=== PATIENT | male | born 1990 | race Caucasian/White ===

== ENCOUNTER 2020-09-09 08:26 | Outpatient (CLI) | payer OTHER ==
[2020-09-09 09:32] VITALS: BP 154/99
--- NOTE | 2020-09-09 09:32 | SLEEP CARE CONSULTATION ---
Information from patient questionnaire entered by Altagracia Martin. I have reviewed and concur with the information entered by Altagracia Martin. This document represents the service I personally performed and the decisions made by me, Ina Preciado ARNP. History of Present Illness Service Date and Time: 09/09/2020825 Reason for Visit: New patient Chief Complaint: reports: Unrefreshed sleep, Snoring, Excessive daytime sleepiness, Observed pauses in breathing, Fatigue, Frequent awakenings at night Date of Onset: a year or so Usual bedtime: my sleep schedule changes weekly Time it takes to fall asleep: it depends on schedule Snores at night: Yes Observed to quit breathing while asleep: Yes Sleeps alone due to snoring: Yes Number of times waking at night: 2-3 Reasons for waking at night: reports: Choking (especially when on his back), Snoring, Gasping for air, Bathroom (due to new medications) Toss, Turn, or Twitch while sleeping: Yes Recalls having dreams: No Usually gets out of bed at: it depends on schedule Feels refreshed in the morning: No Morning headache: Yes (1 time a week, they last all morning to afternoon) Sleepy or fatigued during the day: Yes Ever fallen asleep while driving: No (some drowsy driving, no accidents) Takes day naps: Yes (3-4 days of week depends on schedule) Dreams during day naps: No Prior sleep studies: No Additional HPI information: I had the pleasure of seeing JUAN COLE today regarding the possibility of him having a sleep disorder. His current complaints are snoring, pauses in breathing, unrefreshed sleep and fatigue. He has an irregular work schedule that changes every week. He has been snoring for over a year after gaining 120 pounds. He is now on pre-diabetic meds and high blood pressure medication. He has started working out more as well as lifting weights. He is always tired. He snores so loud his girlfriend cannot sleep and has heard him choking in his sleep. He has a sore throat from snoring most mornings and wakes up with headaches about once a week. His father snores but does not have diagnosis for sleep disorder. - Parasomnia Symptoms Ever been unable to move upon waking from sleep: No Walks in sleep: No Talks in sleep: Yes Ever acted out dreams in sleep: No Ever felt weak in the knees when startled or emotional: No Bothered by creepy, crawly, restless sensations in legs: No Problems with memory or concentration: Yes (mostly concentration from being tired) Subjective Initial [place] Sleepiness Scale score: 11 (in 2020) Past Medical History Past Medical History: reports: Hypertension, Other (pre-diabetes) Social History The patient's occupation is a Active . Patient is Single and lives in [place]. Have you smoked in the past 12 months: No Alcohol use: No Caffeine use: Yes Caffeine amount and frequency: 1 coffee per day Family History Family history of sleep disordered breathing: No Family Hx Sleep Apnea: Father: Snoring Allergies and Home Medications Drug allergies reviewed: Yes (NKDA) Home medication list reviewed: Yes Allergy and home medication list: Metformin HCTZ (he thinks this sounds right) Review of Systems Weight gain over past 5 years: 120 Cardiovascular: reports: high blood pressure Respiratory: reports: shortness of breath Gastrointestinal: denies: heartburn Neurological: reports: headaches Psychiatric: denies: anxiety, depression Ear/Nose/Throat: reports: dry mouth/throat (in the morning), wisdom teeth remov ed. denies: tonsillectomy Endocrine: reports: sluggishness Physical Exam Blood Pressure: 154/99 (just started HTN meds 3-4 days ago) Cuff size: wrist Heart Rate: 109 O2 Saturation: 93 Height: 6 ft 4 in Weight: 375 lb Body Mass Index: 45.6 BMI Classification: Morbidly Obese Neck circumference: 18.75 (inches) Nostrils: patent to airflow Mouth and throat: narrow oropharynx Soft palate: long Hard palate: normal Uvula: normal Uvula visualization: 50% Mallampati Class II Tongue: enlarged in size with teeth mendes on lateral edges Tonsils: 1+ Chin and jaw: normal size and position Neck: normal w/o lymphadenopathy or thyromegaly Heart: regular rate and rhythm Impression and Plan 1. Suspected Obstructive Sleep Apnea-Hypopnea Syndrome, as suggested by a history of loud and irregular snoring, observed cessation of breath while asle ep, gasping or choking in sleep, morning headache, frequent awakening during the night, unrefreshed sleep, cognitive impairment, and excessive daytime sleepiness. Narrow oropharynx and obesity are common predisposing factors for obstructive sleep apnea-hypopnea syndrome. I recommend proceeding to polysomnography to confirm the diagnosis and to assess severity. If the patient has significant sleep disordered breathing, a manual CPAP titration study will also be performed to find the optimal treatment pressure. I informed the patient of what the sleep studies involve and after some discussion, obtained agreement to proceed. The pathophysiology of obstructive sleep apnea-hypopnea syndrome was discussed with the patient and health risks of cardiovascular and cerebrovascular disease if not treated. Risks of drowsy driving discussed in detail and patient advised to avoid long distance driving and to cable puller at the first sign of drowsiness. Patient agreed to plan. 2. Elevated blood pressure with diagnosis of hypertension. He has just started taking blood pressure medication about 3-4 days ago. His pressure was elevated at 154/99. He was asymptomatic today. He was advised to continue medications and follow up with PCP as needed. * Schedule polysomnography +- manual CPAP titration study and return in 1-2 weeks after the study to discuss result and initiate therapy. * Avoid long distance driving or driving when feeling sleepy. * Avoid alcohol, sedative and muscle relaxant around bedtime. * Attempt to lose weight. * Review instructions provided by trained office staff on how to prepare for the sleep study. * Return for follow-up after sleep study completed. Counseling Topics: Weight loss health impact Visit Type: In Office Time Spent with Patient (minutes): 30 Provider Statement: I spent 100% of the Face to Face Visit with the patient with greater than 50% spent counseling the patient and coordination of care.
== END 2020-09-09 08:27 | disposition home or self-care (01) ==
LOC: SC 08:26
PROVIDERS: ATTEND Nurse Practitioner Family
DX: R06.83 Snoring (principal); R06.81 Apnea, not elsewhere classified; G47.8 Other sleep disorders; R51.9 Headache, unspecified; G47.10 Hypersomnia, unspecified; R41.89 Other symptoms and signs involving cognitive functions and awareness; R53.83 Other fatigue; E66.01 Morbid (severe) obesity due to excess calories; Z68.42 Body mass index [BMI] 45.0-49.9, adult
CPT/HCPCS: 99203; 99212

== ENCOUNTER 2020-10-31 16:36 | Outpatient (CLI) | payer OTHER ==
--- NOTE | 2020-10-31 16:55 | SLEEP CARE CONSULTATION ---
Information from patient questionnaire entered by Nir Solorzano. I have reviewed and concur with the information entered by Nir Solorzano. This document represents the service I personally performed and the decisions made by me, Ina Preciado ARNP. History of Present Illness Service Date and Time: 10/31/2020 163 Initial [place] Sleepiness Scale score: 11 (in 2020) Current [place] Sleepiness Scale score: 9 Additional HPI information: JUAN COLE returns for follow up and results of the recently performed polysomnography. I explained the pathophysiology behind obstructive sleep apnea. We then spent quite a bit of time discussing different treatment options. For mild obstructive sleep apnea, surgery and oral appliance are alternatives to nasal CPAP therapy but in moderate or severe cases, nasal CPAP is the most effective and reliable treatment. Because apnea is primarily in supine position, then positional management therapy could be effective. Methods discussed such as positioning with pillows, using a T-shirt with tennis balls in the back, and shown commercial products that have a pillow format on back to prevent supine sleep. I reviewed the impact of weight changes on sleep apnea and strongly recommended losing weight. After some discussion, the patient opted to go with the nasal CPAP therapy. Nasal autoCPAP set at 4-15 cmH20 will be ordered with rationale explained. A manual titration study will be ordered if unable to find optimal pressure with office adjustments. I explained how CPAP machine works with sample devices Respironics Dreamstation and [employer]CompanyLoop [id number] and what to expect when using the machine. Using CPAP every night in order to get used to it was emphasized. Patient advised to put CPAP mask on before getting into bed so as not to fall asleep without CPAP. To assist acclimation to CPAP use, it could also be used for a short time during day while reading or watching TV. The patient was instructed to call the CPAP supplier to discuss any mechanical problem that may occur. If the mask given is uncomfortable or is difficult to keep on through the night even with adjustment, contact the CPAP supplier as many will replace with another mask style if notified before 30 days. If snoring or perceives is not getting enough air or too much air from the machine, notify this office. AAS patient education PAP tips reviewed and given to patient. Patient does not drink alcohol. Patient was cautioned about risks of drowsy driving until sleepiness symptoms resolve. Sleep Study - Results Type of Sleep Study: Polysomnography ([facility]) Prior sleep studies: No Polysomnography/Home Sleep Study results: This nocturnal polysomnographic sleep study showed moderate snoring which was intermittent in nature. The apnea/hypopnea index was 20.2 and the sleep efficiency was 77 .8%. The PLM index was 9.8. The sleep study is consistent with moderate obstructive sleep apnea with significant desaturation events down to 78%. Therefore, would recommend the patient return to the sleep lab for a full- night CPAP titration study. Alternative therapies, including dental appliances and surgical procedures could also be considered. Attaining optimal weight is recommended. , The EKG showed no significant arrhythmias. Allergies and Home Medications Home medication list reviewed: Yes (no new meds) Review of Systems Review of systems same as previous: Yes (no changes) Physical Exam Heart Rate: 99 O2 Saturation: 97 Height: 6 ft 4 in Weight: 364 lb Body Mass Index: 44.3 BMI Classification: Morbidly Obese Impression and Plan 1. Obstructive Sleep Apnea-Hypopnea Syndrome, moderate, with lowest oxygen saturation of 78%. Obviously this is the cause of the patients symptoms of unre freshed sleep, and excessive daytime sleepiness. Positive pressure therapy could benefit hypertension and pre-diabetes. As mentioned above, the patient will be started on nasal autoCPAP therapy with pressure set at 4-15 cmH2O. A manual titration study will be completed if unable to find optimal treatment pressure with office adjustments. Compliance guidelines also reviewed. A copy of compliance guidelines will be given for reference at check out. Because the apnea is more severe non-supine, I instructed to avoid sleeping non-supine using pillow positioning until able to start CPAP use. * Nasal auto CPAP therapy, pressure at 4-15 cm H2O. * Attempt to lose weight. * Avoid alcohol consumption near bedtime. * Avoid supine sleep until using CPAP. * The patient is again cautioned about driving until sleepiness completely resolves. * Return one month after CPAP obtained. I will assess response to therapy and compliance at that time. Counseling Topics: Weight loss health impact Visit Type: In Office Time Spent with Patient (minutes): 14 Provider Statement: I spent 100% of the Face to Face Visit with the patient with greater than 50% spent counseling the patient and coordination of care.
== END 2020-10-31 16:37 | disposition home or self-care (01) ==
LOC: SC 16:36
PROVIDERS: ATTEND Nurse Practitioner Family
DX: G47.33 Obstructive sleep apnea (adult) (pediatric) (principal); E66.01 Morbid (severe) obesity due to excess calories; Z68.41 Body mass index [BMI] 40.0-44.9, adult
CPT/HCPCS: 99212

== ENCOUNTER 2021-01-01 15:26 | Outpatient (CLI) | payer OTHER ==
--- NOTE | 2021-01-01 15:51 | SLEEP CARE CONSULTATION ---
Information from patient questionnaire entered by Altagracia Martin. I have reviewed and concur with the information entered by Altagracia Martin. This document represents the service I personally performed and the decisions made by , Ina Preciado ARNP. History of Present Illness Service Date and Time: 01/01/2021 1526 Previous diagnosis: Moderate, Obstructive Sleep Apnea-Hypopnea Syndrome AHI: 20.2 (in 2020) Reason for follow up: first compliance Equipment type: CPAP Equipment obtained from: Other ([facility]; got initial supplies) Mask style: Nasal Backup mask available: No (will keep old mask when replaced) Last cushion change: 1.5 weeks ago Prior sleep studies: Yes Year and Where: 2020 [facility] Sleep Type of Sleep Study: Polysomnography HPI additional information: JUAN COLE was diagnosed to have moderate, AHI 20.2, obstructive sleep apnea-hypopnea syndrome and returned today for CPAP therapy first compliance follow-up. CPAP Compliance Data - Data Reviewed with Patient Average duration of nightly device use: 5 hr 38 min Compliance rate %: 77 Current pressure setting (cmH2O): 4-15 (median 5.3, 95th 8.2, max 10.0) Humidity setting: auto Average residual AHI: 1.1 Subjective Missed days of use due to: reports: mask issues Patient concerns: reports: mask discomfort. denies: aerophagia, air blowing in eyes, mask leak noise, condensation in mask/hose, nasal congestion, dry mouth, nose, throat, epistaxis, other Observed to snore while using device: No Current pressure setting perceived as: too low On therapy, patient: reports: sleeping better, awakening more refreshed, being more awake and alert during the day, more rested overall. denies: drowsiness while driving Initial [place] Sleepiness Scale score: 11 (in 2020) Current [place] Sleepiness Scale score: 6 Allergies and Home Medications Home medication list reviewed: Yes (no changes) Review of Systems Review of systems same as previous: Yes (no changes) Physical Exam Heart Rate: 102 O2 Saturation: 98 Height: 6 ft 4 in Weight: 363 lb Body Mass Index: 44.1 BMI Classification: Morbidly Obese Impression and Plan 1. Obstructive Sleep Apnea-Hypopnea Syndrome, moderate, with good treatment compliance and good apnea control. On CPAP therapy, the patient has better sleep quality and is more rested overall. He feels as if the pressure might be a little bit too low with the onset. I will adjust his pressure to 8-10 cmH2O. Patient is to notify me if this pressure is uncomfortable. Goal for apnea control discussed. Patient has been trying to lose weight by watching his portions and making sure to exercise daily. He gained a few pounds from his mother visited with him because he was not exercising and she was cooking for him. He states he will get back on things now that she has gone back home. I encouraged him to continue to try to lose weight. Patient's apnea severity and rationale for treatment to reduce apnea, improve sleep quality and reduce cardiovascular and cerebrovascular events was reviewed. I also reviewed the benefit of consistent device use of CPAP for hypertension and pre-diabetes. * Change auto CPAP pressure to 8-10 cmH2O * Notify me if snoring with mask or feeling that the pressure is too much or too little * Attempt to lose weight * Call this office if any problems using CPAP * Return for follow up in 1-2 months, or sooner if concerns arise Counseling Topics: Spare mask, Weight loss health impact, Activity level Visit Type: In Office Time Spent with Patient (minutes): 20 Provider Statement: I spent 100% of the Face to Face Visit with the patient with greater than 50% spent counseling the patient and coordination of care.
== END 2021-01-01 15:27 | disposition home or self-care (01) ==
LOC: SC 15:26
PROVIDERS: ATTEND Nurse Practitioner Family
DX: G47.33 Obstructive sleep apnea (adult) (pediatric) (principal); E66.01 Morbid (severe) obesity due to excess calories; Z68.41 Body mass index [BMI] 40.0-44.9, adult
CPT/HCPCS: 99212; 99213

== ENCOUNTER 2021-02-03 15:37 | Outpatient (CLI) | payer OTHER ==
--- NOTE | 2021-02-03 16:14 | SLEEP CARE CONSULTATION ---
Information from patient questionnaire entered by Altagracia Martin. I have reviewed and concur with the information entered by Altagracia Martin. This document represents the service I personally performed and the decisions made by , Ina Preciado ARNP. History of Present Illness Service Date and Time: 02/03/2021 1537 Previous diagnosis: Moderate, Obstructive Sleep Apnea-Hypopnea Syndrome AHI: 20.2 (in 2020) Reason for follow up: one month (with pressure change) Equipment type: CPAP Equipment obtained from: Other ([facility]; no further supplies yet, will call them) Mask style: Nasal Backup mask available: No (will keep old mask when replaced) Last cushion change: this last week Prior sleep studies: Yes Year and Where: 2020 [facility] Sleep Type of Sleep Study: Polysomnography HPI additional information: JUAN COLE was diagnosed to have moderate, AHI 20.2, obstructive sleep apnea-hypopnea syndrome and returned today for CPAP therapy one month pressure change follow-up. CPAP Compliance Data - Data Reviewed with Patient Average duration of nightly device use: 5 hr 48 min Compliance rate %: 83 Current pressure setting (cmH2O): 8-10 Humidity setting: auto Heated hose setting: auto Average residual AHI: 1.0 Subjective Patient concerns: denies: aerophagia, mask discomfort, air blowing in eyes, mask leak noise, condensation in mask/hose, nasal congestion, dry mouth, nose, throat, epistaxis, other Observed to snore while using device: No Current pressure setting perceived as: comfortable On therapy, patient: reports: sleeping better, awakening more refreshed, being more awake and alert during the day, more rested overall. denies: drowsiness while driving Initial [place] Sleepiness Scale score: 11 (in 2020) Current [place] Sleepiness Scale score: 5 Allergies and Home Medications Home medication list reviewed: Yes (no changes) Review of Systems Review of systems same as previous: Yes (no changes) Physical Exam Heart Rate: 98 O2 Saturation: 99 Height: 6 ft 4 in Weight: 369 lb Body Mass Index: 44.9 BMI Classification: Morbidly Obese Impression and Plan 1. Obstructive Sleep Apnea-Hypopnea Syndrome, moderate, with good treatment compliance and good apnea control. On CPAP therapy, the patient has better sleep quality and is more rested overall. Patient is satisfied with current treatment and has significant improvement of his apneas. Patient is about to work on losing weight with family. Currently patients BMI is 44.9. Obesity increases the risk of apnea, CPAP pressure requirements and overall health risks especially cardiovascular and diabetes. Thus patient is advised to try to lose weight. Weight loss can be done with reducing portion size, reducing refined foods and balancing content with vegetables, fruit and whole grain foods. Patient's apnea severity and rationale for treatment to reduce apnea, improve sleep quality and reduce cardiovascular and cerebrovascular events was reviewed. I also reviewed the benefit of consistent device use of CPAP for hypertension and pre-diabetes. * Continue autoCPAP pressure at 8-10 cmH2O * Notify me if snoring with mask or feeling that the pressure is too much or too little * Attempt to lose weight * Call this office if any problems using CPAP * Return for follow up in 3 months, or sooner if concerns arise Counseling Topics: Spare mask, Weight loss health impact Visit Type: In Office Time Spent with Patient (minutes): 12 Provider Statement: I spent 100% of the Face to Face Visit with the patient with greater than 50% spent counseling the patient and coordination of care.
== END 2021-02-03 15:38 | disposition home or self-care (01) ==
LOC: SC 15:37
PROVIDERS: ATTEND Nurse Practitioner Family
DX: G47.33 Obstructive sleep apnea (adult) (pediatric) (principal); E66.01 Morbid (severe) obesity due to excess calories; Z68.41 Body mass index [BMI] 40.0-44.9, adult
CPT/HCPCS: 99212